=== PATIENT | male | born 1965 | race Caucasian/White ===

== ENCOUNTER 2017-11-14 10:32 | Emergency (ER) | payer OTHER ==
[2017-11-14] MEDS ORDERED: MAG HYDROX/AL HYDROX/SIMETH 30 ML UDCUP PO ONE (11:38)
[2017-11-14] MEDS ORDERED: LIDOCAINE 2% VISCOUS 15 ML UDCUP PO ONE (11:39)
[2017-11-14] MEDS ORDERED: HYOSCYAMINE SULFATE 0.125 MG TAB PO ONE (11:41)
[2017-11-14] MEDS ORDERED: HYOSCYAMINE SULFATE 0.125 MG TAB ONE (11:43)
[2017-11-14] MEDS ORDERED: NS 1,000 ML IV ONE (11:48)
[2017-11-14 11:57] LABS: PLATELET COUNT 256 10^3/uL (150-400)
[2017-11-14] MEDS ORDERED: ONDANSETRON 4 MG/2 ML VIAL IVP ONE (11:57)
--- NOTE | 2017-11-14 12:06 | EDPHY ---
H & P Stated Complaint: H/A, Nausea, diarrhea x 6hrs. denies bleeding. Time Seen by Provider: 11/14/17 11:28 HPI/ROS: CHIEF COMPLAINT:"my belly hurts" HISTORY OF PRESENT ILLNESS: 52-year-old male with no history of abdominal surgeries in the ER with his ex- complaining of periumbilical abdominal pain , diarrhea without nausea or vomiting since 4:00 a.m. Today. No testicular pain. No fever or chills. No heavy alcohol use. No cocaine use. No chest pain. No dyspnea. Daily lithium therapy which he has been compliant with His also states that he has a history of bipolar disorder, completed ECT 4 years ago with excellent results and has been under quite a bit of stress recently. He is not endorse suicidal or homicidal ideation. She is concerned that his current symptoms may be related to acute anxiety REVIEW OF SYSTEMS: 10 systems reviewed and negative with the exception of the elements mentioned in the history of present illness PAST MEDICAL & SURGICAL HISTORY: Bipolar disorder SOCIAL HISTORY:Denies alcohol or drug use PHYSICAL EXAM (Prior to examination, patient consented to physical exam, hands were washed and my usual and customary physical exam procedures followed) 1) GENERAL: Well-developed, well-nourished, alert and oriented. Appears nontoxic. 2) HEAD: Normocephalic, atraumatic 3) HEENT: Pupils equal, round, reactive to light bilaterally. Sclera anicteric. Nasopharynx, oropharynx, clear, no lesions. MoistDry mucous membranes. Ears bilaterally with normal tympanic membranes. 4) NECK: Full range of motion, no meningeal signs. 5) LUNGS: Clear auscultation bilaterally, no wheezes, no rhonchi, no retractions. 6) HEART: Regular rate and rhythm, no murmur, no heave, no gallop. 7) ABDOMEN: Tender to palpation periumbilical region. Negative McBurney's, negative Javier's, negative Rovsing's, negative peritoneal sign, 8) MUSCULOSKELETAL: Moving all extremities, no focal areas of tenderness, no obvious trauma. No peripheral edema or discoloration. 9) BACK: No CVA tenderness, no midline vertebral tenderness, no fluctuance, no step-off, no obvious trauma, no visual or palpable abnormality. 10) SKIN: No rash, no petechiae. 11) Psychiatric: Patient is oriented X 3, there is no agitation. 12) NEURO: Awake, alert, and oriented to person, place and time. Answers questions appropriately. There were no obvious focal neurologic abnormalities. No cerebellar dysfunction. Cranial nerves 2 through to 12 intact. Normal steady gait. Upper and lower extremities bilaterally with strength 5 / 5, reflexes 2+. 13) : Normal male external genitalia bilateral testicles descended, nontende , equal cremasteric reflex bilaterally, no high-riding testicle DIFFERENTIAL DIAGNOSIS: My differential diagnosis includes, but is not limited to, acute appendicitis, acute cholecystitis, bowel obstruction, acute pancreatitis, testicular torsion, gastritis and urinary tract infection. The patient understands that this diagnosis is provisional and can never be 100% accurate. This is a partial list of diagnoses considered. These considerations are based on history, physical exam, past history and reassessment. - Personal History Current Tetanus/Diphtheria Vaccine: Yes - Medical/Surgical History Hx Asthma: No Hx Chronic Respiratory Disease: No Hx Diabetes: No Hx Cardiac Disease: No Hx Renal Disease: No Hx Cirrhosis: No Hx Alcoholism: No Hx HIV/AIDS: No Hx Splenectomy or Spleen Trauma: No Other PMH: viral encephalitis, bipolar - Social History Smoking Status: Never smoked Constitutional: Initial Vital Signs Temperature (C) 36.4 C 11/14/17 10:37 Heart Rate 76 11/14/17 10:37 Respiratory Rate 18 11/14/17 10:37 Blood Pressure 129/85 H 11/14/17 10:37 O2 Sat (%) 96 11/14/17 10:37 O2 Delivery Mode Room Air Allergies/Adverse Reactions: No Known Allergies Allergy (Verified 11/14/17 10:36) Home Medications: Medication Instructions Recorded Cholecalciferol Vit D3 [Vitamin D3 1,000 units PO DAILY 08/19/13 (*)] Ibuprofen [Motrin (*)] 200 mg PO DAILY PRN 08/19/13 [place]-3 Fatty Acids [Fish Oil 1000 1,000 mg PO DAILY 08/19/13 mg (*)] Hydrocodone/APAP 5/325 [[place] 1 tab PO Q6 PRN #14 tab 08/25/13 5/325 (*)] LORazepam [Ativan (*)] 0.5 - 1 mg PO Q6 PRN #30 tab 08/25/13 Ondansetron Odt [Zofran Odt 4 mg 4 mg PO Q6 PRN #30 tab 08/25/13 (*)] QUEtiapine FUMARATE [Seroquel 200 200 mg PO HS #30 tab 08/25/13 mg (*)] lamoTRIgine [LaMICtal] 25 mg PO HS #90 tab 08/25/13 Hydrocodone/APAP 5/325 [[place] 1 tab PO Q6 PRN #7 tab 11/14/17 5/325 (RX)] [place] Carbonate 11/14/17 Ondansetron Odt [Zofran Odt] 4 mg PO Q4PRN PRN #7 tab 11/14/17 Medical Decision Making - Diagnostics Imaging Results: Imaging Impressions Abdomen CT 11/14/17 12:07 Impression: 1. Normal appendix. 2. Dysmotile bowel pattern suggestive of gastroenteritis. 3. Hepatic steatosis. Findings discussed with Emergency Department physician social and human services assistant, Tyron Lebron on 11/14/2017, 12:43. Images reviewed myself ED Course/Re-evaluation: 1:20 p.m.: Re-evaluation. Discussed his imaging results which are negative for appendicitis, more than likely gastroenteritis radiographic findings. At this time he is sleeping, easily woken, states that he is pain free. At this time I do not think that hospitalization is indicated. Doubt acute surgical abdominal pathology. Doubt acute appendicitis. Doubt acute pancreatitis. He feels comfortable being discharged with antiemetic and pain medication although he has had no complaints of nausea. He has been unable to provide a stool sample. His had previously discussed with me his increasing stress levels. I discussed this further at this time. He denies suicidal or homicidal ideation. He does not feel he necessitates emergent psychiatric evaluation. I recommend he contact his therapist or psychiatrist. And given my usual and customary psychiatric precautions instructions. I saw this patient independently based on established practice protocols. Care of patient under supervision of secondary supervising physician Dr Roger . - Data Points Laboratory Results: Laboratory Results 11/14/17 10:54 11/14/17 10:54 11/14/17 11/14/17 11/14/17 11:12 10:54 10:54 WBC 14.30 10^3/uL H 10^3/uL (3.80-9.50) RBC 5.81 10^6/uL 10^6/uL (4.40-6.38) Hgb 17.1 g/dL g/dL (13.7-17.5) Hct 49.3 % % (40.0-51.0) MCV 84.9 fL fL (81.5-99.8) MCH 29.4 pg pg (27.9-34.1) MCHC 34.7 g/dL g/dL (32.4-36.7) RDW 13.0 % % (11.5-15.2) Plt Count 256 10^3/uL 10^3/uL (150-400) MPV 10.2 fL fL (8.7-11.7) Neut % (Auto) 90.9 % H % (39.3-74.2) Lymph % (Auto) 3.6 % L % (15.0-45.0) [place] % (Auto) 4.6 % % (4.5-13.0) Eos % (Auto) 0.3 % L % (0.6-7.6) Baso % (Auto) 0.3 % % (0.3-1.7) Nucleat RBC Rel Count 0.0 % % (0.0-0.2) Absolute Neuts (auto) 13.00 10^3/uL H 10^3/uL (1.70-6.50) Absolute Lymphs (auto) 0.51 10^3/uL L 10^3/uL (1.00-3.00) Absolute Monos (auto) 0.66 10^3/uL 10^3/uL (0.30-0.80) Absolute Eos (auto) 0.04 10^3/uL 10^3/uL (0.03-0.40) Absolute Basos (auto) 0.04 10^3/uL 10^3/uL (0.02-0.10) Absolute Nucleated RBC 0.00 10^3/uL 10^3/uL (0-0.01) Immature Gran % 0.3 % % (0.0-1.1) Immature Gran # 0.04 10^3/uL 10^3/uL (0.00-0.10) RBC/WBC/PLT Morphology TNP Platelet Estimate TNP Sodium 141 mEq/L mEq/L (135-145) Potassium 4.5 mEq/L mEq/L (3.3-5.0) Chloride 109 mEq/L mEq/L (97-110) Carbon Dioxide 21 mEq/l L mEq/l (22-31) Anion Gap 11 mEq/L mEq/L (8-16) BUN 16 mg/dL mg/dL (7-23) Creatinine 1.1 mg/dL mg/dL (0.7-1.3) Estimated GFR > 60 Glucose 94 mg/dL mg/dL (70-100) Calcium 10.2 mg/dL mg/dL (8.5-10.4) Total Bilirubin 1.2 mg/dL mg/dL (0.1-1.4) Conjugated Bilirubin 0.4 mg/dL mg/dL (0.0-0.5) Unconjugated Bilirubin 0.8 mg/dL mg/dL (0.0-1.1) AST 44 IU/L IU/L (17-59) ALT 37 IU/L IU/L (21-72) Alkaline Phosphatase 113 IU/L IU/L (38-126) Total Protein 8.6 g/dL H g/dL (6.3-8.2) Albumin 5.0 g/dL g/dL (3.5-5.0) Lipase 137 IU/L IU/L (23-300) Urine Color YELLOW Urine Appearance CLEAR Urine pH 8.0 H (5.0-7.5) Ur Specific [place] 1.019 (1.002-1.030) Urine Protein NEGATIVE (NEGATIVE) Urine Ketones TRACE H (NEGATIVE) Urine Blood NEGATIVE (NEGATIVE) Urine Nitrate NEGATIVE (NEGATIVE) Urine Bilirubin NEGATIVE (NEGATIVE) Urine Urobilinogen NEGATIVE EU EU (0.2-1.0) Ur Leukocyte Esterase NEGATIVE (NEGATIVE) Urine RBC 1-3 /hpf /hpf (0-3) Urine WBC 5-10 /hpf H /hpf (0-3) Ur Epithelial Cells NONE SEEN /lpf /lpf (NONE-1+) Urine Mucus TRACE /lpf /lpf (NONE-1+) Urine Glucose NEGATIVE (NEGATIVE) [place] 0.4 mEq/L L mEq/L (0.6-1.2) Medications Given: Discontinued Medications Sodium Chloride (Ns) 1,000 mls @ 0 mls/hr IV ONCE ONE PRN Reason: Wide Open Stop: 11/14/17 11:49 Last Admin: 11/14/17 12:00 Dose: 1,000 mls Morphine Sulfate (Morphine) 4 mg IVP EDNOW ONE Stop: 11/14/17 11:49 Last Admin: 11/14/17 12:00 Dose: 4 mg Ondansetron HCl (Zofran) 4 mg IVP EDNOW ONE Stop: 11/14/17 11:58 Last Admin: 11/14/17 12:00 Dose: 4 mg Departure - Departure Disposition: Home, Routine, Self-Care Clinical Impression: Diarrhea Qualifiers: Diarrhea type: unspecified type Qualified Code(s): R19.7 - Diarrhea, unspecified Condition: Good Instructions: Acute Diarrhea (ED) Additional Instructions: Seek immediate medical attention if you develop new or worsening symptoms, if you develop fevers, chills, inability to tolerate oral intake or any other symptoms that concerns you. Referrals: [facility] [Other] - 1 day without fail Prescriptions: Hydrocodone/APAP 5/325 [[place] 5/325 (RX)] 1 tab PO Q6 PRN #7 tab PRN Reason: Pain, Severe Ondansetron Odt [Zofran Odt] 4 mg PO Q4PRN PRN #7 tab PRN Reason: Nausea
[2017-11-14] MEDS ORDERED: IOPAMIDOL (ISOVUE-300) 100 ML BTL ONE (12:15)
[2017-11-14 13:47] VITALS: BP 124/67
== END 2017-11-14 13:47 | disposition home or self-care (01) ==
DX: R19.7 Diarrhea, unspecified (principal)
CPT/HCPCS: 96374; J2270; J2405; Q9967

== ENCOUNTER 2018-03-22 20:26 | Emergency (ER) | payer OTHER ==
[2018-03-22 20:30] VITALS: BP 138/81
--- NOTE | 2018-03-22 21:00 | EDPHY ---
H & P Smoking Status: Never smoked Time Seen by Provider: 03/22/18 20:38 HPI/ROS: HPI Bipolar and depression. 52-year-old male by foot. He has a history of bipolar disorder and depression. He takes Lamictal and lithium for this. He has been taking his medications as prescribed. He reports that his depression has been worsening over the last 1-2 weeks. He also is feeling anxious. He is feeling close to having a breakdown which she had several years ago need to be hospitalized. He cannot give me and inciting event. He is currently living in a hotel room in [place]. He denies any alcohol. He denies any IV drugs or street drugs. The patient states that he is not suicidal. ROS: Constitutional: No fever, no chills. As above. Eyes: No discharge. No changes in vision. ENT: No sore throat. No nasal congestion or rhinorrhea. Respiratory: No cough. No shortness of breath. Cardiac: No chest pain, no palpitations. Gastrointestinal: No abdominal pain, no vomiting, no diarrhea. Genitourinary: No hematuria. No dysuria or increased frequency with urination. Musculoskeletal: No back pain. No neck pain. No myalgias or arthralgias. Skin: No rashes. Neurological: No headache. No focal weakness or altered sensation. Past medical history: Viral encephalitis. As above. Social history: Nonsmoker. He is currently here by himself. No alcohol. Denies IV drugs and street drugs. He has family nearby. Physical Exam: General Appearance: Alert, emotionally labile, tearful. This patient is responding to questions appropriately and in full sentences. This patient appears well-hydrated and well-nourished. Eyes: Pupils equal and round no pallor or injection. No lid edema, erythema or injection. ENT, Mouth: Mucous membranes are moist. The pharyngeal tissues are unremarkable. No edema or swelling. No asymmetry suggestive of abscess. No erythema or exudates. Respiratory: There are no retractions, lungs are clear to auscultation with good air movement bilaterally. Cardiovascular: Regular rate and rhythm. No murmur. Gastrointestinal: Abdomen is soft and nontender, no masses, bowel sounds normal. No focal tenderness at McBurney's point. No Javier sign. Neurological: Motor sensory function is grossly intact. Cranial nerves are normal. Gait is normal. Skin: Warm and dry, no rashes. Musculoskeletal: Neck is supple and nontender. Extremities are symmetrical. All joints range without pain or impingement. Psychiatric: No agitation. As above. Database: EKG: Imaging: Procedures: Emergency department course: Triage vital signs reviewed and are normal. I feel this patient is appropriate for behavioral health evaluation at 9:00 p.m. when I initially saw him. We have contacted [facility] to see if they will evaluate him. 10:00 p.m., [facility] has done a preliminary evaluation of the patient. They do want the patient kept in the emergency department overnight. They agree that he does not need to be on an M1 hold at this time. He is not suicidal. He is here voluntarily. They are requesting standard blood work be obtained. We have ordered this. The plan is to re-evaluate him in the morning and disposition will be determined at that time. 11:00 p.m., plan is as above. Care turned over to Dr. Puente at this time. Differential Diagnosis: The differential diagnosis on this patient includes but is not limited to major depression, situational depression, bipolar. Suicidal, homicidal ideation unlikely. This represents a partial list of diagnoses considered. These considerations are based on history, physical exam, past history, reassessment and diagnostic testing. (Braden Delarosa) Constitutional: Initial Vital Signs Temperature (C) 36.6 C 03/22/18 20:28 Heart Rate 72 03/22/18 20:28 Respiratory Rate 16 03/22/18 20:28 Blood Pressure 138/81 H 03/22/18 20:28 O2 Sat (%) 98 03/22/18 20:28 O2 Delivery Mode Room Air Allergies/Adverse Reactions: No Known Allergies Allergy (Verified 03/22/18 20:30) Home Medications: Medication Instructions Recorded lamoTRIgine [LaMICtal] 25 mg PO HS #90 tab 08/25/13 [place] Carbonate 11/14/17 Medical Decision Making Other Provider: 12:44 a.m.- I received sign-out on this patient from Dr. Delarosa. The patient is awaiting reassessment by mental health services and is not on an M1 hold or detain ir. He would like to leave the emergency department because he is having difficulty sleeping here. He was offered medication to aid in sleep, however he declines. He says he would like to return to his hotel where he is staying. He denies any suicidal ideations or plan to hurt himself. He says he can come back if he is feeling unsafe in any way. He has a treating psychiatrist though was unable to contact her over the weekend. He will attempt to contact her tomorrow morning and says he can follow up at a different facility if he is still feeling badly. I have advised him that he is going against medical advice and he realizes this. He will be discharged home. (Sandi Figueroa) - Data Points Laboratory Results: 03/22/18 20:31 Urine Opiates Screen NEGATIVE (NEGATIVE) Urine Barbiturates NEGATIVE (NEGATIVE) Ur Phencyclidine Scrn NEGATIVE (NEGATIVE) Ur Amphetamine Screen NEGATIVE (NEGATIVE) U Benzodiazepines Scrn NEGATIVE (NEGATIVE) Urine Cocaine Screen NEGATIVE (NEGATIVE) U Marijuana (THC) Screen NEGATIVE (NEGATIVE) Departure - Departure Disposition: Home, Routine, Self-Care Clinical Impression: Depression Qualifiers: Depression Type: unspecified Qualified Code(s): F32.9 - Major depressive disorder, single episode, unspecified Condition: Good Instructions: [facility] Additional Instructions: Please return to the emergency department if your worse in any way. Referrals: [facility],. [Clinic] - As per Instructions
== END 2018-03-23 00:51 | disposition home or self-care (01) ==
DX: F32.9 Major depressive disorder, single episode, unspecified (principal)
CPT/HCPCS: 80305